=== PATIENT | female | born 1980 | race Caucasian/White ===

== ENCOUNTER → 2016-09-05 | Outpatient (CLI) | payer BC ==
[~2016-09-05] VITALS: Ht 177.8 cm; Wt 126.1 kg
[~2016-09-05] MED LIST: AMOXICILLIN 50500 MG PO; CELEXA 20MG20 MG/TAB; CEPHALEXIN250 M1 PO; CORTISPORIN EAR10 ML OT; DHA; DIFLUCAN150 MG PO; EPITOL; FLEXERIL10 MG PO; FORTAMET1000 MG PO; FORTAMET500 MG PO; GLUCOPHAGE1000 MG PO; GLUCOPHAGE500 MG/TAB PO; GLYBURIDE5 MG PO; HUMALOG100 U/ML SC; INSULIN N (N100 U/ML SC; JARDIANCE25 PO; KLONOPIN 0.5MG0.5 MG PO; LEVEMIR FLEX100 U/ML SQ; LEXAPRO20 MG PO; LORTAB 5/500 501 TAB PO; MICROGESTIN 1.51 TAB; MINIPRESS 1M1 MG/CAP PO; NAPROSYN500 MG PO; NO HOME MEDICATIONS; NORCO 325 MG-51 TAB PO; PEPCID AC10 M1 PO; PERCOCET 325 MG1 TA2 PO; PRENATAL1 TA1 PO; PRIL40 PO; PRINIVIL2.5 MG PO; PROTONIX I40 MG/VIAL; PROVENTIL0.09 MG/A1 IH; PROZAC 20MG20 MG PO; PROZAC40 MG PO; RANITIDINE HYD150 MG PO; REGLAN10 MG PO; ROBAXIN500 MG PO; TEGRETOL 2200 MG/TAB PO; TRIAMCINOLONE0.1% TP; VICTOZA6 MG/ML SC; WELLBUTRIN SR150 M1; XANAX 0.5MG0.5 MG PO; ZESTRIL 10MG10 MG; ZESTRIL2.5 MG PO; ZOCOR 20MG20 MG PO; ZOFRAN 4MG T4 MG/TAB PO
[2016-09-05 16:41] VITALS: BP 124/68; PULSE 82
[2016-09-05 17:18] VITALS: BP 124/68; PULSE 82
== END ==
LOC: LIGHT 14:51
DX: E11.65 Type 2 diabetes mellitus with hyperglycemia (principal); K21.9 Gastro-esophageal reflux disease without esophagitis; E78.4 Other hyperlipidemia; J45.998 Other asthma; Z68.39 Body mass index [BMI] 39.0-39.9, adult

== ENCOUNTER → 2016-10-04 | Outpatient (CLI) | payer BC | LOC: BHSO 08:51 | DX: Z01.818 Encounter for other preprocedural examination (principal) ==

== ENCOUNTER → 2016-10-10 | Outpatient (CLI) | payer BC ==
[~2016-10-10] VITALS: Ht 177.8 cm; Wt 120.9 kg
[2016-10-10 16:13] VITALS: BP 132/67; PULSE 79
[2016-10-10 18:05] VITALS: BP 132/67; PULSE 79
== END ==
LOC: LIGHT 14:28
DX: E11.65 Type 2 diabetes mellitus with hyperglycemia (principal); K21.9 Gastro-esophageal reflux disease without esophagitis; E78.4 Other hyperlipidemia; J45.998 Other asthma; Z68.38 Body mass index [BMI] 38.0-38.9, adult

== ENCOUNTER → 2016-10-31 | Outpatient (CLI) | payer BC ==
[~2016-10-31] VITALS: Ht 177.8 cm; Wt 122.9 kg
[2016-10-31 16:37] VITALS: BP 124/73; PULSE 83
== END ==
LOC: LIGHT 13:43
DX: E11.9 Type 2 diabetes mellitus without complications (principal); K21.9 Gastro-esophageal reflux disease without esophagitis; E78.4 Other hyperlipidemia; J45.998 Other asthma

== ENCOUNTER 2017-01-03 09:16 | Emergency (ER) | payer BC ==
[~2017-01-03] VITALS: Ht 177.8 cm; Wt 120.9 kg
[~2017-01-03 09:16] MED LIST changes: -DIFLUCAN150 MG PO
[2017-01-03 09:18] VITALS: BP 123/68; TEMP 98
[2017-01-03 09:56] LABS: BASO # 0.1 (0.0-0.2); EOS # 0.2 (0.0-0.7); EOS % 3.9 % (0-4.0); GRAN # 2.6 (1.4-6.5); GRAN % 52.1 % (42.2-75.2); HEMATOCRIT 37.5 % (37.0-47.0); LYMPH # 1.8 (1.2-3.4); LYMPH % 36.3 % (20.0-51.0); MEAN CELL VOLUME 83 fl (80.0-100.0); MEAN CORPUSCULAR HEMOGLOBIN 27 pg (27.0-31.0); MEAN CORPUSCULAR HGB CONC 32 g/dl (33.0-37.0); MEAN PLATELET VOLUME 10.1 fl (7.4-10.4); MONO # 0.3 (0.1-0.6); MONO % 6.1 % (1.7-9.3); PLATELET COUNT 228 K/mm3 (130-400); REDCELL DISTRIBUTION WIDTH-CV 14.2 % (11.5-14.5); WHITE BLOOD COUNT 4.9 K/mm3 (4.8-10.8)
[2017-01-03 10:21] LABS: ADJUSTED CALCIUM 8.3 mg/dL (8.4-10.2); ALANINE AMINOTRANSFERASE 37 U/L (9-52); ALBUMIN 3.9 gm/dL (3.5-5.0); ALKALINE PHOSPHATASE 66 U/L (50-136); ANION GAP 10 mmol/L (7-16); BILIRUBIN,TOTAL 0.6 mg/dL (0.0-1.0); BLOOD UREA NITROGEN 12 mg/dL (7-17); CALCIUM 8.2 mg/dL (8.4-10.2); CARBON DIOXIDE 24 mmol/L (22-30); CHLORIDE 102 mmol/L (98-107); CREATININE, serum 0.64 mg/dL (0.52-1.25); GLUCOSE 187 mg/dL (74-106); LIPASE 143 U/L (23-300); POTASSIUM 4.2 mmol/L (3.4-5.0); SODIUM 135 mmol/L (137-145)
[2017-01-03] MEDS ORDERED: NAPROSYN500 MG PO (10:22)
[2017-01-03] MEDS ORDERED: DIFLUCAN150 MG PO (10:38)
[2017-01-03 10:40] LABS: C-REACTIVE PROTEIN < 0.5 mg/dL (0.0-0.9)
[2017-01-03 11:10] VITALS: PULSE 79
== END 2017-01-03 11:11 | disposition home or self-care (01) ==
LOC: COL.ER 09:16
PROVIDERS: Emergency Medicine
DX: R11.2 Nausea with vomiting, unspecified (principal); R19.7 Diarrhea, unspecified; R10.84 Generalized abdominal pain; E11.9 Type 2 diabetes mellitus without complications; I10 Essential (primary) hypertension; Z79.4 Long term (current) use of insulin
CPT/HCPCS: J2405; J7030

== ENCOUNTER → 2017-07-20 | Outpatient (CLI) | payer BC ==
[~2017-07-20] MED LIST changes: +DIFLUCAN150 MG PO
== END ==
LOC: COL.LAB 11:14
DX: R05 Cough (principal); R50.9 Fever, unspecified

== ENCOUNTER 2018-01-07 07:32 | Emergency (ER) | payer BC ==
[~2018-01-07] VITALS: Ht 180.3 cm; Wt 99.5 kg
[2018-01-07 07:36] VITALS: BP 120/69
[2018-01-07 08:37] VITALS: PULSE 72; TEMP 98
== END 2018-01-07 08:36 | disposition home or self-care (01) ==
LOC: COL.ER 07:32
DX: Z71.1 Person with feared health complaint in whom no diagnosis is made (principal); Z98.84 Bariatric surgery status

== ENCOUNTER 2019-03-07 14:35 | Emergency (ER) | payer BC ==
[~2019-03-07] VITALS: Ht 180.3 cm; Wt 107.3 kg
[2019-03-07 14:58] VITALS: BP 127/76; TEMP 98.2
[2019-03-07] MEDS ORDERED: NORCO 325 MG-51 TAB PO (16:16)
[2019-03-07 16:28] VITALS: PULSE 78
== END 2019-03-07 16:28 | disposition home or self-care (01) ==
LOC: COL.ER 14:35
DX: T63.301A Toxic effect of unspecified spider venom, accidental (unintentional), initial encounter (principal); E78.00 Pure hypercholesterolemia, unspecified

== ENCOUNTER 2019-03-09 12:24 | Emergency (ER) | payer BC ==
[~2019-03-09] VITALS: Ht 180.3 cm; Wt 108.3 kg
[2019-03-09 12:28] VITALS: TEMP 98.9
[2019-03-09] MEDS ORDERED: PERCOCET 325 MG1 TA3 PO (13:51)
[2019-03-09] MEDS ORDERED: CEPHALEXIN500 M1 PO (13:51)
[2019-03-09 13:54] VITALS: BP 136/76; PULSE 89
== END 2019-03-09 14:00 | disposition home or self-care (01) ==
LOC: COL.ER 12:24
DX: T63.331A Toxic effect of venom of brown recluse spider, accidental (unintentional), initial encounter (principal); F41.9 Anxiety disorder, unspecified; F32.9 Major depressive disorder, single episode, unspecified; Z98.84 Bariatric surgery status

== ENCOUNTER 2019-05-01 07:00 | Outpatient (RCR) | payer BC ==
[2019-04-17 07:26] VITALS: BP 135/85; PULSE 77; TEMP 98.8
[~2019-05-01] VITALS: Ht 180.3 cm; Wt 107.5 kg
[~2019-05-01 07:00] MED LIST changes: +CEPHALEXIN500 M1 PO; +CYMBALTA 30MG30 MG PO; +FOLIC ACID 11 MG/TA1 PO; +MULTI VITAMINS1 TAB PO; +PERCOCET 325 MG1 TA3 PO; +PRENATAL MVI PO; +VITAMIN B11000 MCG/M IM; +VITAMIN D 50,1.25 MG PO
[2019-05-01 08:08] VITALS: BP 113/74; PULSE 86; TEMP 98.5
== END 2019-05-01 09:02 | disposition home or self-care (01) ==
LOC: EUO 07:00
DX: D50.9 Iron deficiency anemia, unspecified (principal)
CPT/HCPCS: J2916

== ENCOUNTER 2020-06-12 08:22 | Emergency (ER) | payer BC ==
[~2020-06-12] VITALS: Ht 180.3 cm; Wt 104.1 kg
[2020-06-12 08:28] VITALS: BP 117/79; TEMP 98.3
[2020-06-12] MEDS ORDERED: GLUCOPHAGE XR500 M1 PO (08:43)
[2020-06-12 10:32] VITALS: PULSE 87
== END 2020-06-12 10:30 | disposition home or self-care (01) ==
LOC: COL.ER 08:22
DX: S60.211A Contusion of right wrist, initial encounter (principal); E11.9 Type 2 diabetes mellitus without complications; Z88.6 Allergy status to analgesic agent; Z79.84 Long term (current) use of oral hypoglycemic drugs; W19.XXXA Unspecified fall, initial encounter

== ENCOUNTER 2021-03-09 08:42 | Emergency (ER) | payer BC ==
[~2021-03-09] VITALS: Ht 180.3 cm; Wt 100.0 kg
[~2021-03-09 08:42] MED LIST changes: +GLUCOPHAGE XR500 M1 PO
[2021-03-09 08:53] VITALS: TEMP 97.4
[2021-03-09 09:05] LABS: BASO # 0.1 (0.0-0.2); BASO % 1.8 % (0.0-2.0); EOS # 0.2 (0.0-0.7); EOS % 4.9 % (0-4.0); GRAN # 1.4 (1.4-6.5); GRAN % 42.6 % (42.2-75.2); HEMATOCRIT 42.3 % (37.0-47.0); LYMPH # 1.4 (1.2-3.4); MEAN CELL VOLUME 87 fl (80.0-100.0); MEAN CORPUSCULAR HEMOGLOBIN 27 pg (27.0-31.0); MEAN CORPUSCULAR HGB CONC 31 g/dl (33.0-37.0); MEAN PLATELET VOLUME 9.3 fl (7.4-10.4); MONO # 0.3 (0.1-0.6); MONO % 9.4 % (1.7-9.3); PLATELET COUNT 323 K/mm3 (130-400); RED BLOOD COUNT 4.86 M/mm3 (4.10-5.30); REDCELL DISTRIBUTION WIDTH-CV 16.7 % (11.5-14.5)
[2021-03-09 09:17] LABS: ALANINE AMINOTRANSFERASE 50 U/L (4-34); ALBUMIN 4.3 gm/dL (3.5-5.0); ALKALINE PHOSPHATASE 88 U/L (50-136); ANION GAP 8 mmol/L (7-16); AST,SGOT 55 U/L (15-37); BILIRUBIN,TOTAL 0.3 mg/dL (0.0-1.0); BLOOD UREA NITROGEN 6 mg/dL (7-17); CARBON DIOXIDE 26 mmol/L (22-30); CHLORIDE 107 mmol/L (98-107); CREATININE, serum 0.65 (0.52-1.25); GLUCOSE 165 mg/dL (74-106); POTASSIUM 4.3 mmol/L (3.4-5.0); SODIUM 141 mmol/L (137-145); TOTAL PROTEIN 7.9 gm/dL (6.4-8.2)
[2021-03-09 09:27] LABS: CREATINE KINASE 54 U/L (30-135)
[2021-03-09 09:33] LABS: TROPONIN-I < 0.012 ng/mL (0.000-0.035)
[2021-03-09 09:48] LABS: TSH w REFLEX 0.514 uIU/mL (0.465-4.680)
[2021-03-09 10:45] LABS: COLLECTION METHOD CLEAN CATCH
[2021-03-09 10:55] LABS: MUCOUS Present /lpf; PH 5 (5-8); SQUAMOUS EPITHELIAL 0-2 /hpf; URINE APPEARANCE Clear; URINE BACTERIA None Seen /hpf; URINE BILIRUBIN Negative (NEGATIVE); URINE BLOOD Negative (NEGATIVE); URINE COLOR Yellow; URINE GLUCOSE 1+ (NEGATIVE); URINE KETONE Trace (NEGATIVE); URINE LEUKOCYTE ESTERASE Negative (NEGATIVE); URINE NITRATE Negative (NEGATIVE); URINE PROTEIN(semi-quant) Negative (NEGATIVE); URINE RBC 0-2 /hpf; URINE UROBILINOGEN Negative (NEGATIVE)
[2021-03-09 11:07] LABS: TRICYCLIC ANTIDEPRESS URINE NEGATIVE
[2021-03-09 11:17] VITALS: BP 116/79; PULSE 85
== END 2021-03-09 11:17 | disposition home or self-care (01) ==
LOC: COL.ER 08:42
PROVIDERS: Emergency Medicine
DX: R41.82 Altered mental status, unspecified (principal); E11.9 Type 2 diabetes mellitus without complications; R94.5 Abnormal results of liver function studies; Z79.84 Long term (current) use of oral hypoglycemic drugs
CPT/HCPCS: J2060; J2310; J7030

== ENCOUNTER → 2021-03-16 | Outpatient (CLI) | payer BC | LOC: COL.CARD 10:00 | DX: R55 Syncope and collapse (principal); R00.2 Palpitations ==

== ENCOUNTER 2024-04-29 10:09 | Emergency (ER) | payer BC ==
[~2024-04-29] VITALS: Ht 180.3 cm; Wt 118.2 kg
[2024-04-29 10:52] LABS: BASO % 0.9 % (0.0-2.0); EOS # 0.1 K/mm3 (0.0-0.7); EOS % 2.4 % (0.0-4.0); GRAN # 2.5 K/mm3 (1.4-6.5); GRAN % 55.4 % (42.2-75.2); HEMATOCRIT 38.8 % (37.0-47.0); HEMOGLOBIN 11.9 g/dl (12.5-16.0); LYMPH # 1.5 K/mm3 (1.2-3.4); LYMPH % 31.9 % (20.0-51.0); MEAN CELL VOLUME 88 fl (80.0-100.0); MEAN CORPUSCULAR HEMOGLOBIN 27 pg (27-31); MEAN CORPUSCULAR HGB CONC 31 g/dl (33.0-37.0); MEAN PLATELET VOLUME 10.3 fl (7.4-10.4); MONO # 0.4 K/mm3 (0.1-0.6); PLATELET COUNT 201 K/mm3 (130-400); RED BLOOD COUNT 4.42 M/mm3 (4.10-5.30); REDCELL DISTRIBUTION WIDTH-CV 15.3 % (11.5-14.5)
[2024-04-29 11:12] LABS: INR 1.1 (0.8-3.0); PROTHROMBIN TIME 11.6 SECONDS (9.7-12.8)
[2024-04-29 11:15] LABS: ALANINE AMINOTRANSFERASE 69 U/L (0-55); ALBUMIN 3.1 g/dL (3.5-5.0); ALKALINE PHOSPHATASE 79 U/L (40-150); ANION GAP 11 mmol/L (7-16); AST,SGOT 89 U/L (5-34); BILIRUBIN,TOTAL 0.5 mg/dL (0.2-1.2); BLOOD UREA NITROGEN 5 mg/dL (7-19); CALCIUM 8.6 mg/dL (8.4-10.2); CHLORIDE 104 mEq/L (98-107); CREATINE KINASE 59 U/L (29-168); CREATININE, serum 0.79 mg/dL (0.57-1.11); GLUCOSE 119 mg/dL (70-99); LIPASE 30 U/L (8-78); SODIUM 140 mEq/L (136-145); TOTAL PROTEIN 6.8 g/dl (6.2-8.1)
[2024-04-29 11:24] LABS: D-DIMER < 200.00 ng/mLDDu (200-230)
[2024-04-29 11:35] LABS: TROPONIN-I < 0.010 ng/mL (0.00-0.033)
[2024-04-29 15:39] VITALS: BP 127/82; PULSE 72
== END 2024-04-29 15:39 | disposition home or self-care (01) ==
LOC: COL.ER 10:09
PROVIDERS: Emergency Medicine
DX: R07.89 Other chest pain (principal)